=== PATIENT | male | born 1995 | race Asian ===

== ENCOUNTER 2019-01-11 14:34 | Emergency (ER) | payer OTHER ==
[~2019-01-11] VITALS: Ht 170.2 cm; Wt 65.8 kg
[2019-01-11 14:39] VITALS: BP 106/59
[2019-01-11] MEDS ORDERED: ONDANSETRON 4 MG ODT PO ONE (15:50)
[2019-01-11 17:14] VITALS: BP 103/60
== END 2019-01-11 17:14 | disposition home or self-care (01) ==
LOC: MED 14:34
DX: R11.2 Nausea with vomiting, unspecified (principal); R19.7 Diarrhea, unspecified; E86.0 Dehydration; A04.72 Enterocolitis due to Clostridium difficile, not specified as recurrent
CPT/HCPCS: 99283; Q0162